=== PATIENT | male | born 1975 | race Caucasian/White ===

== ENCOUNTER 2020-10-26 23:51 | Emergency (ER) | payer OTHER ==
[~2020-10-26] VITALS: Ht 172.7 cm; Wt 66.7 kg
--- NOTE | 2020-10-27 00:05 | NUR ---
ERMD at bedside for MSE
--- NOTE | 2020-10-27 00:10 | NUR ---
Patient ambulated with steady gait. A/Ox4. Patient came for c/o left sided chest pressure that patient is able to reproduce when applying pressure to the area. Patient has discomfort upon inhalation. Denies any recent trauma.
[2020-10-27] MEDS ORDERED: ASPIRIN 325 MG TABLET PO ONE (00:30)
[2020-10-27 00:31] LABS: BASOPHILS % (AUTO) 0.6 % (0.0-2.0); EOSINOPHILS # (AUTO) 0.1 K/uL (0.0-0.7); EOSINOPHILS % (AUTO) 1.2 % (0.0-7.0); HEMATOCRIT 40.1 % (36.7-47.1); HEMOGLOBIN 13.6 g/dL (12.5-16.3); LYMPHOCYTES # (AUTO) 1.8 K/uL (20.0-40.0); LYMPHOCYTES % (AUTO) 32.4 % (20.5-51.5); MEAN CORPUSCULAR HEMOGLOBIN 29.6 uug (23.8-33.4); MEAN CORPUSCULAR HGB CONC 34 g/dL (32.5-36.3); MEAN CORPUSCULAR VOLUME 87.1 fL (73.0-96.2); MONOCYTES # (AUTO) 0.6 K/uL (2.0-10.0); NEUTROPHILS # (AUTO) 3.1 K/uL (1.8-8.9); NEUTROPHILS % (AUTO) 55.8 % (38.5-71.5); PLATELET COUNT (AUTO) 202 K/uL (152-348); WHITE BLOOD COUNT (AUTO) 5.6 K/uL (3.6-10.2)
[2020-10-27 00:32] LABS: CREATININE 1.1 mg/dL (0.6-1.3)
[2020-10-27] MEDS ORDERED: ASPIRIN 325 MG TABLET ONE (00:36)
[2020-10-27 00:46] LABS: BILIRUBIN,DIRECT 0.1 mg/dL (0.0-0.2); BILIRUBIN,TOTAL 0.3 mg/dL (0.2-1.0); TOTAL PROTEIN, SERUM 7.4 g/dL (6.4-8.2)
--- NOTE | 2020-10-27 03:52 | NUR ---
Patient discharged to home in stable condition. Written and verbal after care instructions given. Patient verbalizes understanding of instructions. Stressed follow up or return to ER for worsening s/s. Patient ambulated with steady gait.
[2020-10-27 03:53] VITALS: BP 125/78
== END 2020-10-27 03:53 | disposition home or self-care (01) ==
LOC: ER 10-27 00:03
DX: R07.2 Precordial pain (principal); R00.1 Bradycardia, unspecified; Z82.49 Family history of ischemic heart disease and other diseases of the circulatory system
CPT/HCPCS: 36415; 70030-TC; 71045; 85025; 93005; A4663